=== PATIENT | male | born 1985 | race Caucasian/White ===

== ENCOUNTER 2020-11-01 15:29 | Emergency (ER) | payer OTHER ==
[2020-11-01 15:45] VITALS: BP 142/91; PULSE 82; TEMP 98.2; BMI 28.4
[2020-11-01] MEDS ORDERED: MAG HYDROX/AL HYDROX/SIMETH 30 ML UNIT-DOSE CUP PO ONE (16:27)
[2020-11-01] MEDS ORDERED: FAMOTIDINE 20 MG TABLET PO ONE (16:27)
[2020-11-01] MEDS ORDERED: FAMOTIDINE 20 MG TABLET ONE (16:29)
[2020-11-01] MEDS ORDERED: MAG HYDROX/AL HYDROX/SIMETH 30 ML UNIT-DOSE CUP ONE (16:30)
== END 2020-11-01 18:00 | disposition home or self-care (01) ==
LOC: JER 15:29
DX: R07.89 Other chest pain (principal)
CPT/HCPCS: 36415; 82550; 82553; 84484; 93005; 93010; 99284-25